=== PATIENT | female | born 1990 | race Caucasian/White ===

== ENCOUNTER 2018-09-16 09:11 | Emergency (ER) | payer OTHER ==
[2018-09-16] MEDS ORDERED: PROCHLORPERAZINE MALEATE 10 MG TABLET PO ONE (09:36)
[2018-09-16] MEDS ORDERED: DIPHENHYDRAMINE HCL 50 MG CAPSULE PO ONE (09:36)
[2018-09-16] MEDS ORDERED: NAPROXEN 250 MG TABLET PO ONE (09:36)
--- NOTE | 2018-09-16 09:38 | ER Document Report ---
ED Medical Screen (RME) - General Chief Complaint: Headache Stated Complaint: HEADACHE/VISION ISSUES Time Seen by Provider: 09/16/18 09:31 Notes: 28-year-old female patient woke up this morning with bitemporal headache and some pressure in the back of her head and base of her skull with some nauseousness. She states she has some dizziness or vertigo which woke her up. She does not normally get headaches and does not have a history of migraine. There is some visual disturbance, there is no photophobia. She does have problems with her sinuses. She does have some tenderness to palpate the temporal regions on either side, and the posterior cervical muscles at the base of her skull. There is no nuchal rigidity. I have greeted and performed a rapid initial assessment of this patient. A comprehensive ED assessment and evaluation of the patient, analysis of test results and completion of the medical decision making process will be conducted by additional ED providers. TRAVEL OUTSIDE OF THE [place] IN LAST 30 DAYS: No - Related Data Allergies/Adverse Reactions: No Known Allergies Allergy (Verified 10/01/13 20:01) Past Medical History - Past Medical History Cardiac Medical History: Denies: Hx Heart Attack, Hx Hypertension Pulmonary Medical History: Reports: Hx Asthma Neurological Medical History: Denies: Hx Cerebrovascular Accident, Hx Seizures Renal/ Medical History: Denies: Hx Peritoneal Dialysis GI Medical History: Denies: Hx Hepatitis, Hx Hiatal Hernia, Hx Ulcer Infectious Medical History: Denies: Hx Hepatitis Past Surgical History: Denies: Hx Mastectomy, Hx Open Heart Surgery, Hx Pacemaker - Immunizations Hx Diphtheria, Pertussis, Tetanus Vaccination: No Physical Exam - Vital signs Vitals: Temp Pulse Resp BP Pulse Ox 98.3 F 107 H 16 140/88 H 98 09/16/18 09:14 09/16/18 09:14 09/16/18 09:14 09/16/18 09:14 09/16/18 09:14 Course - Vital Signs Vital signs: Temp Pulse Resp BP Pulse Ox 98.3 F 107 H 16 140/88 H 98 09/16/18 09:14 09/16/18 09:14 09/16/18 09:14 09/16/18 09:14 09/16/18 09:14
[2018-09-16] MEDS ORDERED: NORMAL SALINE 1000 ML 1,000 ML IV ONE (10:05)
--- NOTE | 2018-09-16 10:17 | ER Document Report ---
ED Headache - General Chief Complaint: Headache Stated Complaint: HEADACHE/VISION ISSUES Time Seen by Provider: 09/16/18 09:31 TRAVEL OUTSIDE OF THE [place] IN LAST 30 DAYS: No - HPI Notes: Patient is a 28-year-old female that presents to the emergency department for chief complaint of headache. Patient reports while going to the bathroom at 730 this morning she had acute onset of headache and visual disturbance. She states initially she noticed a ring of light in her left eye that made it difficult to see. When she closed her left eye she could see normally. She states the visual disturbance has s flores completely resolved. After the visual disturbance she started having a pressure bitemporally that radiates into the base of her neck. That pain has persisted since onset. She denies history of migraines or headaches in the past. She states this was maximum severity at initial onset and has persisted at maximum severity. She denied any exertion or sexual intercourse this morning prior to onset of headache. She denies any vomiting but does report nausea. LMP 08/25/18. She states she has had one headache that was more severe than this and it was when she was a preeclamptic with her . Past Medical History: Asthma, vertigo Past Surgical History: Sinus surgery Social History: Denies drugs alcohol and tobacco Family History: Reviewed and noncontributory for presenting illness Allergies: Reviewed, see documented allergy list. REVIEW OF SYSTEMS: CONSTITUTIONAL : No fever No chills No diaphoresis No recent illness EENT: vision changes No congestion No sore throat CARDIOVASCULAR: No chest pain No palpitations RESPIRATORY: No shortness of breath No cough No difficulty breathing GASTROINTESTINAL: No abdominal pain nausea No vomiting No diarrhea GENITOURINARY: No dysuria No hematuria No difficulty urinating MUSCULOSKELETAL: No back pain No leg pain No arm pain SKIN: No rashes No lesions LYMPHATIC: No swollen, enlarged glands. NEUROLOGICAL: No lightheadedness headache No weakness No paresthesias PSYCHIATRIC: No anxiety No depression PHYSICAL EXAMINATION: Vital signs reviewed, nursing noted reviewed. GENERAL: Well-appearing, well-nourished and in no acute distress. HEAD: Atraumatic, normocephalic. EYES: Eyes appear normal, extraocular movements intact, sclera anicteric, conjunctiva are normal. ENT: nares patent, oropharynx clear without exudates. Moist mucous membranes. NECK: Normal range of motion, supple without lymphadenopathy LUNGS: Breath sounds clear to auscultation bilaterally and equal. No wheezes rales or rhonchi. HEART: Regular rate and rhythm without murmurs ABDOMEN: Soft, nontender, normoactive bowel sounds. No rebound, guarding, or rigidity. No masses appreciated. EXTREMITIES: Nontender, good range of motion, no pitting or edema. NEUROLOGICAL: No focal neurological deficits. Moves all extremities spontaneously Motor and sensory grossly intact on exam. PSYCH: Normal mood, normal affect. SKIN: Warm, Dry, normal turgor, no rashes or lesions noted on exposed skin - Related Data Allergies/Adverse Reactions: No Known Allergies Allergy (Verified 10/01/13 20:01) Past Medical History - Social History Smoking Status: Unknown if Ever Smoked Family History: Reviewed & Not Pertinent Patient has suicidal ideation: No Patient has homicidal ideation: No - Past Medical History Cardiac Medical History: Denies: Hx Heart Attack, Hx Hypertension Pulmonary Medical History: Reports: Hx Asthma Neurological Medical History: Denies: Hx Cerebrovascular Accident, Hx Seizures Renal/ Medical History: Denies: Hx Peritoneal Dialysis GI Medical History: Denies: Hx Hepatitis, Hx Hiatal Hernia, Hx Ulcer Infectious Medical History: Denies: Hx Hepatitis Past Surgical History: Denies: Hx Mastectomy, Hx Open Heart Surgery, Hx Pacemaker - Immunizations Hx Diphtheria, Pertussis, Tetanus Vaccination: No Physical Exam - Vital signs Vitals: Temp Pulse Resp BP Pulse Ox 98.3 F 107 H 16 140/88 H 98 09/16/18 09:14 09/16/18 09:14 09/16/18 09:14 09/16/18 09:14 09/16/18 09:14 Course - Re-evaluation Re-evalutation: 09/16/18 10:15 Vitals reviewed. Nursing notes reviewed. Patient received naproxen, Benadryl, and Compazine as ordered by the physician in triage prior to my evaluation. She currently reports no improvement of her headache however she was medicated only a few minutes ago. Patient has no focal neurologic deficits. She is afebrile with no signs of meningitis. Her headache was acute in onset and maximum severity quickly, CT scan will be ordered to evaluate for subarachnoid hemorrhage 09/16/18 11:12 Patient reevaluated. She states she is still feeling nauseated but her headache is improving. The headache is still present and she was ordered magnesium and Decadron. She has not yet received any of her IV fluids, those have been started now. Patient CT brain shows no acute intracranial pathology including mass lesion or subarachnoid hemorrhage. She is within the 6-hour window since onset of headache and my suspicion clinically for subarachnoid hemorrhage at this time is very low. We did discuss lumbar puncture if her symptoms do not improve significantly. Head CT 09/16/18 10:05 IMPRESSION: NORMAL BRAIN CT WITHOUT CONTRAST. LEFT MAXILLARY SINUS DISEASE. EVIDENCE OF ACUTE STROKE: NO. 09/16/18 12:53 Patient reevaluated and states her headache has almost completely resolved. She has not had any more visual disturbances while in the ER. My suspicion for subarachnoid hemorrhage is very minimal. Patient has deferred lumbar puncture at this time since she is feeling back to normal. She will return to the emergency room for any new or worsening symptoms including worsening headache, vision changes, fevers and intractable vomiting. She will follow closely with primary care as an outpatient Laboratory 09/16/18 11:13 Urine Color STRAW Urine Appearance CLEAR Urine pH 7.0 Ur Specific [place] 1.012 Urine Protein NEGATIVE Urine Glucose (UA) NEGATIVE Urine Ketones NEGATIVE Urine Blood NEGATIVE Urine Nitrite NEGATIVE Urine Bilirubin NEGATIVE Urine Urobilinogen NEGATIVE Ur Leukocyte Esterase NEGATIVE Urine WBC (Auto) 1 Urine RBC (Auto) 1 Squamous Epi Cells Auto <1 Urine Mucus (Auto) RARE Urine Ascorbic Acid NEGATIVE Urine HCG, Qual NEGATIVE - Vital Signs Vital signs: Temp Pulse Resp BP Pulse Ox 98.1 F 79 16 111/71 96 09/16/18 11:57 09/16/18 11:57 09/16/18 11:57 09/16/18 11:57 09/16/18 11:57 Discharge - Discharge Clinical Impression: Cephalgia Qualifiers: Headache type: unspecified Headache chronicity pattern: acute headache Intractability: not intractable Qualified Code(s): R51 - Headache Condition: Stable Disposition: HOME, SELF-CARE Instructions: Headache ([facility]) Additional Instructions: Please return to the emergency department if you have any worsening, or concern of your symptoms. Please return to the emergency department if you develop chest pain, difficulty breathing, severe abdominal pain, or ongoing vomiting. Please follow-up with your primary care physician in 2-3 days and any other recommended physicians. If prescribed, take all medications as directed. If you have any questions or concerns do not hesitate to return the emergency department for evaluation. Stay well-hydrated at home. Continue taking ibuprofen or Tylenol as needed for headache. Return to the emergency room if you develop any worsening vision changes, numbness, weakness or fevers Referrals: [facility] [Provider Group] - Follow up as needed
--- NOTE | 2018-09-16 10:38 | RADIOLOGY REPORT (SQ) ---
EXAM DESCRIPTION: CT HEAD WITHOUT COMPLETED DATE/TIME: 09/16/2018 10:25 am REASON FOR STUDY: headache COMPARISON: None. TECHNIQUE: Axial images acquired through the brain without intravenous contrast. Images reviewed wi th bone, brain and subdural windows. Additional sagittal and coronal reconstructions were generated. Images stored on PACS. All CT scanners at this facility use dose modulation, iterative reconstruction, and/or weight based d osing when appropriate to reduce radiation dose to as low as reasonably achievable (ALARA). [facility]: Dose Right [facility]: CareDose [facility]: Dose Right [facility]: Teradose 4D [facility]: Chideo RADIATION DOSE: CT Rad equipment meets quality standard of care and radiation dose reduction techniq ues were employed. CTDIvol: 53.2 mGy. DLP: 1017 mGy-cm. mGy. LIMITATIONS: None. FINDINGS: VENTRICLES: Normal size and contour. CEREBRUM: No masses. No hemorrhage. No midline shift. No evidence for acute infarction. Normal gra y/white matter differentiation. No areas of low density in the white matter. CEREBELLUM: No masses. No hemorrhage. No alteration of density. No evidence for acute infarction. EXTRAAXIAL SPACES: No fluid collections. No masses. ORBITS AND GLOBE: No intra- or extraconal masses. Normal contour of globe without masses. CALVARIUM: No fracture. PARANASAL SINUSES: Mucous membrane thickening in the left maxillary sinus. No fluid levels. SOFT TISSUES: No mass or hematoma. OTHER: No other significant finding. IMPRESSION: NORMAL BRAIN CT WITHOUT CONTRAST. LEFT MAXILLARY SINUS DISEASE. EVIDENCE OF ACUTE STROKE: NO. COMMENT: Quality ID # [id number]: Final reports with documentation of one or more dose reduction techniques (e.g., Automated exposure control, adjustment of the mA and/or kV according to patient size, use of iterative reconstruction technique) TECHNICAL DOCUMENTATION: JOB ID: [id number] [employer] All Rights Reserved Reading location - IP/workstation name: [email or web address]
[2018-09-16] MEDS ORDERED: DEXAMETHASONE SOD PHOS INJ 10 MG/1 ML VIAL IV ONE (11:09)
[2018-09-16] MEDS ORDERED: MAGNESIUM SULFATE/D5W 1 GM/100 ML RTUPB IV ONE (11:09)
[2018-09-16] MEDS ORDERED: ONDANSETRON HCL INJ/PF 4 MG/2 ML SDV IV ONE (11:28)
[2018-09-16 11:34] LABS: APPEARANCE,URINE CLEAR; BILIRUBIN,URINE NEGATIVE (NEGATIVE); COLOR,URINE STRAW; GLUCOSE, URINE NEGATIVE (NEGATIVE); KETONES,URINE NEGATIVE (NEGATIVE); LEUKOCYTE ESTERASE,URINE NEGATIVE (NEGATIVE); NITRITE,URINE NEGATIVE (NEGATIVE); PROTEIN,URINE NEGATIVE (NEGATIVE); URINE SPECIFIC GRAVITY 1.012; UROBILINOGEN,URINE NEGATIVE mg/dL (<2.0)
[2018-09-16 13:44] VITALS: BP 117/69
== END 2018-09-16 13:44 | disposition home or self-care (01) ==
LOC: ER 09:11
DX: R51 Headache (principal); R11.0 Nausea
CPT/HCPCS: 99284; 96361; 96375; 96365; 96367; 81025; 81001; 70450; J3475; S0183; J2405; J7030; J1100